=== PATIENT | female | born 1985 | race Two or more races ===

== ENCOUNTER → 2016-09-04 | Outpatient (CLI) | payer OTHER ==
[2015-04-06 00:49] VITALS: BP 186/97
--- NOTE | 2016-09-04 10:54 | RAD ---
HISTORY: Left foot pain history of trauma 1 month ago Study: Left foot three view Comparison: None Findings: No acute cortical disruption or dislocation can be identified. No significant soft tissue swelling or injury can be seen. The visualized portions of the talus and calcaneus are unremarkable. The saad nts are normal. IMPRESSION: 1. Negative exam. Reported By:
== END ==
LOC: RAD 09:44
PROVIDERS: ATTEND Obstetrics & Gynecology Obstetrics
DX: M25.572 Pain in left ankle and joints of left foot (principal)
CPT/HCPCS: 73630

== ENCOUNTER 2017-01-29 16:45 | Observation (INO) | payer OTHER ==
--- NOTE | 2017-01-29 17:31 | DR.GENAD ---
HPI - PCP Primary Care Physician: JARRELL - HPI Comment HPI Comment: PAIN GETTING WORSE AND IS ASSOCIATED WITH SOB. PAIN NON RADIATING. SHE DID NOT TAKE ANY MEDICATION FOR PAIN BEFORE COMING. WAS GOING TO [facility] BUT TURN AROUND AND CAME TO ED. DENIES CALF PAIN. - Complaint/Symptoms Chief Complaint Doctors Comments: RIGHT SIDED CHEST PAIN, SOB NOTED TODAY. Chief Complaint:: HURTING IN RIGHT SIDE OF UPPER CHEST WHEN I TAKE A DEEP BREATH. - Nurses notes reviewed Nurses Notes Review: Yes - Source History Provided: Patient - Mode of Arrival Mode of Arrival: Ambulatory - Timing Onset of Chief Complaint: 01/29/17 Came on: Suddenly - Duration Duration: Constant Duration: Hours - Severity Severity: Moderate PMH - PMH Past Medical History: No Past Surgical History: No Surgical History: - Family History History of Family Medical Conditions: Yes Family Medical History: Diabetes Mellitus, Hypertension - Social History Does any household member use tobacco: No Alcohol Use: None Do you use any recreational Drugs:: No Lives With: Family Lives Where: Home - infectious screening In the last 2 months have you had wt loss of >10#?: NO Have you had fever, night sweats or hemotysis?: No Have you traveled outside the country in the last 6 months?: No Isolation: Standard ROS - Review of Systems Constitutional: Weakness, Fatigue. negative: Chills, Fever Eyes: No Symptoms Reported. negative: Eye Pain, Discharge ENTM: No Symptoms Reported. negative: Ear Pain, Nose Discharge, Nose Congestion , Throat Pain Respiratoy: Short of Breath. negative: Non-Productive Cough, Wheezing, Hemoptysis Cardiovascular: Chest Pain. negative: Edema, Palpitations Gastrointestinal/Abdominal: No Symptoms Reported. negative: Abdominal Pain, Nausea, Vomiting Genitourinary: No Symptoms Reported. negative: Dysuria, Frequency, Hematuria Neurological: No Symptoms Reported, Weakness. negative: Headache, Dizziness Musculoskeletal: Muscle Pain Integumentary: No Symptoms Reported Hematologic/Lymphatic: No Symptoms Reported Endocrine: No Symptoms Reported All Other Systems: Reviewed and Negative PE - Vital Signs Vitals: Temperature 98.7 F Pulse Rate 81 Respiratory Rate 16 Blood Pressure [Left Arm] 165/86 Blood Pressure 158/99 O2 Sat by Pulse Oximetry 98 - General Limitations: No Limitations General Appearance: Alert - Head Head Exam: Normal Inspection - Eyes Eye exam: Normal Appearance - ENT ENT Exam: Normal External Ear Exam External Ear Exam: Normal External Inspection TM/Canal Exam: Bilateral Normal Nose Exam: Normal Nose Exam Mouth Exam: Normal Inspection Throat Exam: Normal Inspection - Neck Neck Exam: Normal Inspection - Chest Chest Inspection: Symmetric Chest Wall Rise - Respiratory Respiratory Exam: Normal Lung Sounds Bilat Respiratory Exam: Bilateral Clear to Auscultation - Cardiovascular Cardiovascular Exam: Regular Rate, Normal Rhythm, Normal Heart Sounds - Abdominal Exam Abdominal Exam: Normal Bowel Sounds, Soft. negative: Tenderness - Extremities Extremities Exam: Normal Inspection - Back Back Exam: Normal Inspection - Neurologic Neurological Exam: Alert, Oriented X3 - Psychiatric Psychiatric Exam: Anxious - Skin Skin Exam: Normal Color MDM - Differential Diagnosis Differential Diagnosis: CHEST PAIN, RESPIRATORY DISTRESS Course - Treatment Treatment: SEE ORDERS. - Consultation Consultation Comments: DISCUSS PATIENT WITH DR. GIMENEZ. HE WILL ADMIT PATIENT. - Education/Counseling Education/Counseling: Patient, Education Educated On: Diagnosis ROR - Labs Reviewed Laboratory Results Reviewed?: Yes Result Diagrams: 01/29/17 18:04 01/29/17 18:04 Laboratory: WBC 7.6 X10^3/uL (3.6-10.0) 01/29/17 18:04 RBC 4.41 X10^6/uL (3.5-5.4) 01/29/17 18:04 Hgb 11.7 g/dL (12.0-16.0) L 01/29/17 18:04 Hct 35.7 % (36.0-47.0) L 01/29/17 18:04 MCV 81.1 fL (80.0-100.0) 01/29/17 18:04 MCH 26.7 pg (27.0-34.0) L 01/29/17 18:04 MCHC 32.9 g/dL (33.0-35.0) L 01/29/17 18:04 RDW 15.6 % (11.6-16.5) 01/29/17 18:04 Plt Count 244 X10^3/uL (150.0-450.0) 01/29/17 18:04 MPV 8.1 fL (7.4-11.0) 01/29/17 18:04 Neut % 65.8 % (42.0-75.0) 01/29/17 18:04 Lymph % 25.5 % (21.0-51.0) 01/29/17 18:04 Davison % 5.9 % (0.0-13.0) 01/29/17 18:04 Eos % 2.5 % (0.9-2.9) 01/29/17 18:04 Baso % 0.3 % (0.2-1.0) 01/29/17 18:04 Neut # 5.0 x10^3/uL (2.2-4.8) H 01/29/17 18:04 Lymph # 1.9 X10^3/uL (1.3-2.9) 01/29/17 18:04 Davison # 0.4 x10^3/uL (0.3-0.8) 01/29/17 18:04 Eos # 0.2 x10^3/uL (0.0-0.2) 01/29/17 18:04 Baso # 0.0 X10^3/uL (0.0-0.1) 01/29/17 18:04 Absolute Nucleated RBC 0.0 /100WBC 01/29/17 18:04 D-Dimer 510 ng/mL (0-400) H* 01/29/17 18:04 Sodium 143 mmol/L (136-145) 01/29/17 18:04 Corrected Sodium TNP 01/29/17 18:04 Potassium 3.8 mmol/L (3.5-5.1) 01/29/17 18:04 Chloride 106 mmol/L (98-107) 01/29/17 18:04 Carbon Dioxide 30.6 mmol/L (21-32) 01/29/17 18:04 BUN 9 mg/dL (7-18) 01/29/17 18:04 Creatinine 0.61 mg/dL (0.55-1.02) 01/29/17 18:04 Est GFR (MDRD) Af Amer > 60 (>60) 01/29/17 18:04 Est GFR (MDRD) Non-Af > 60 (>60) 01/29/17 18:04 Glucose 89 mg/dL (65-99) 01/29/17 18:04 Calcium 8.2 mg/dL (8.5-10.1) L 01/29/17 18:04 Corrected Calcium TNP 01/29/17 18:04 Total Bilirubin 0.20 mg/dL (0.2-1.0) 01/29/17 18:04 AST 15 Units/L (15-37) 01/29/17 18:04 ALT 27 Units/L (12-78) 01/29/17 18:04 Alkaline Phosphatase 80 Units/L (46-116) 01/29/17 18:04 Creatine Kinase 146 Units/L (26-192) 01/29/17 18:04 CK-MB (CK-2) < 1.0 ng/mL (0-4.0) 01/29/17 18:04 CK/CKMB % Calc 0.7 % (<4) 01/29/17 18:04 Troponin I < 0.02 ng/mL (0-1.5) 01/29/17 18:04 Total Protein 7.4 g/dL (6.4-8.2) 01/29/17 18:04 Albumin 3.4 g/dL (3.4-5.0) 01/29/17 18:04 Globulin 4.0 g/dL (2.5-4.5) 01/29/17 18:04 Albumin/Globulin Ratio 0.9 Ratio (1.1-2.1) L 01/29/17 18:04 Specimen Type Clean catch urine 01/29/17 19:05 Urine Color Yellow (YELLOW) 01/29/17 19:05 Urine Appearance Clear (CLEAR) 01/29/17 19:05 Urine pH 6.5 (5.0 - 8.0) 01/29/17 19:05 Ur Specific Kohler 1.015 (1.000-1.030) 01/29/17 19:05 Urine Protein Negative (NEGATIVE) 01/29/17 19:05 Urine Glucose (UA) Negative (NEGATIVE) 01/29/17 19:05 Urine Ketones Negative (NEGATIVE) 01/29/17 19:05 Urine Occult Blood Negative (NEGATIVE) 01/29/17 19:05 Urine Nitrite Negative (NEGATIVE) 01/29/17 19:05 Urine Bilirubin Negative (NEGATIVE) 01/29/17 19:05 Urine Urobilinogen Normal (NORMAL) 01/29/17 19:05 Ur Leukocyte Esterase Negative (NEGATIVE) 01/29/17 19:05 Urine RBC None seen /HPF (NEGATIVE) 01/29/17 19:05 Urine WBC 0-2 /HPF (NEGATIVE) 01/29/17 19:05 Ur Squamous Epith Cells Few /HPF (NEGATIVE) 01/29/17 19:05 Urine Bacteria Trace /HPF (NEGATIVE) 01/29/17 19:05 Ur Culture Indicated? No/not indicated 01/29/17 19:05 - XRAY XRAY Interpreted by: Radiologist XRAY Findings: REPORT DISCUSS WITH PATIENT. - EKG Rhythm: NSR (EKG NOTED.) - Diagnosis Discharge Problem: Chest pain, Respiratory distress - Discharge Plan Disposition: ADMITTED INPATIENT Condition: Stable - Follow ups/Referrals - Instructions
[2017-01-29 18:12] LABS: BASOPHILS % (AUTO) 0.3 % (0.2-1.0); EOSINOPHILS # (AUTO) 0.2 x10^3/uL (0.0-0.2); EOSINOPHILS % (AUTO) 2.5 % (0.9-2.9); HEMATOCRIT 35.7 % (36.0-47.0); HEMOGLOBIN 11.7 g/dL (12.0-16.0); LYMPHOCYTES # (AUTO) 1.9 X10^3/uL (1.3-2.9); LYMPHOCYTES % (AUTO) 25.5 % (21.0-51.0); MEAN CORPUSCULAR HEMOGLOBIN 26.7 pg (27.0-34.0); MEAN CORPUSCULAR HGB CONC 32.9 g/dL (33.0-35.0); MEAN CORPUSCULAR VOLUME 81.1 fL (80.0-100.0); MEAN PLATELET VOLUME 8.1 fL (7.4-11.0); MONOCYTES # (AUTO) 0.4 x10^3/uL (0.3-0.8); MONOCYTES % (AUTO) 5.9 % (0.0-13.0); NEUTROPHILS % (AUTO) 65.8 % (42.0-75.0); PLATELET COUNT 244 X10^3/uL (150.0-450.0); RED BLOOD COUNT 4.41 X10^6/uL (3.5-5.4); RED CELL DISTRIBUTION WIDTH 15.6 % (11.6-16.5); WHITE BLOOD COUNT 7.6 X10^3/uL (3.6-10.0)
[2017-01-29 18:46] LABS: ALANINE AMINOTRANSFERASE 27 Units/L (12-78); ALBUMIN 3.4 g/dL (3.4-5.0); ALKALINE PHOSPHATASE 80 Units/L (46-116); ASPARTATE AMINO TRANSFERASE 15 Units/L (15-37); BLOOD UREA NITROGEN 9 mg/dL (7-18); CALCIUM 8.2 mg/dL (8.5-10.1); CARBON DIOXIDE 30.6 mmol/L (21-32); CHLORIDE 106 mmol/L (98-107); CKMB % 0.7 % (<4); CREATINE KINASE 146 Units/L (26-192); CREATINE KINASE MB < 1.0 ng/mL (0-4.0); CREATININE 0.61 mg/dL (0.55-1.02); GLUCOSE 89 mg/dL (65-99); SODIUM 143 mmol/L (136-145); TOTAL PROTEIN 7.4 g/dL (6.4-8.2); TROPONIN I < 0.02 ng/mL (0-1.5); eGFR BLACK RACES > 60 (>60); eGFR NON BLACK RACES > 60 (>60)
[2017-01-29 18:51] LABS: D DIMER 510 ng/mL (0-400)
[2017-01-29 19:09] LABS: BILIRUBIN,URINE NEGATIVE (NEGATIVE); BLOOD/HEMOGLOBIN,URINE NEGATIVE (NEGATIVE); GLUCOSE, URINE NEGATIVE (NEGATIVE); KETONES,URINE NEGATIVE (NEGATIVE); LEUKOCYTE ESTERASE ,URINE NEGATIVE (NEGATIVE); NITRITES,URINE NEGATIVE (NEGATIVE); PH,URINE 6.5 (5.0 - 8.0); PROTEIN,URINE NEGATIVE (NEGATIVE); UROBILINOGEN,URINE NORMAL (NORMAL)
[2017-01-29 19:14] LABS: APPEARANCE,URINE CLEAR (CLEAR); BACTERIA,URINE TRACE /HPF (NEGATIVE); COLOR,URINE YELLOW (YELLOW); RBC,URINE NONE SEEN /HPF (NEGATIVE); SQUAMOUS EPITHELIAL CELL,UR FEW /HPF (NEGATIVE)
--- NOTE | 2017-01-29 21:24 | RAD ---
Chest AP portable Indication: Dyspnea. Comparison: December 25, 2013 radiograph Findings: There is no pneumothorax, effusion or consolidation. Heart size is normal for technique. Impression: No acute chest process. Reported By:
[2017-01-29 23:41] VITALS: BMI 49.6
[2017-01-30 00:36] LABS: CKMB % 0.8 % (<4); CREATINE KINASE 130 Units/L (26-192); CREATINE KINASE MB < 1.0 ng/mL (0-4.0); TROPONIN I < 0.02 ng/mL (0-1.5)
[2017-01-30 06:06] LABS: BASOPHILS % (AUTO) 0.3 % (0.2-1.0); EOSINOPHILS # (AUTO) 0.3 x10^3/uL (0.0-0.2); EOSINOPHILS % (AUTO) 4.2 % (0.9-2.9); HEMATOCRIT 33.1 % (36.0-47.0); HEMOGLOBIN 11.1 g/dL (12.0-16.0); LYMPHOCYTES # (AUTO) 2.7 X10^3/uL (1.3-2.9); LYMPHOCYTES % (AUTO) 37.4 % (21.0-51.0); MEAN CORPUSCULAR HGB CONC 33.5 g/dL (33.0-35.0); MEAN CORPUSCULAR VOLUME 80.6 fL (80.0-100.0); MEAN PLATELET VOLUME 8.5 fL (7.4-11.0); MONOCYTES # (AUTO) 0.4 x10^3/uL (0.3-0.8); MONOCYTES % (AUTO) 6.2 % (0.0-13.0); NEUTROPHILS # (AUTO) 3.7 x10^3/uL (2.2-4.8); NEUTROPHILS % (AUTO) 51.9 % (42.0-75.0); PLATELET COUNT 222 X10^3/uL (150.0-450.0); RED BLOOD COUNT 4.11 X10^6/uL (3.5-5.4); RED CELL DISTRIBUTION WIDTH 15.3 % (11.6-16.5); WHITE BLOOD COUNT 7.1 X10^3/uL (3.6-10.0)
[2017-01-30 06:08] LABS: ALANINE AMINOTRANSFERASE 24 Units/L (12-78); ALBUMIN 2.9 g/dL (3.4-5.0); ALKALINE PHOSPHATASE 67 Units/L (46-116); ASPARTATE AMINO TRANSFERASE 13 Units/L (15-37); BLOOD UREA NITROGEN 9 mg/dL (7-18); CALCIUM 7.7 mg/dL (8.5-10.1); CARBON DIOXIDE 27.8 mmol/L (21-32); CHLORIDE 107 mmol/L (98-107); COR CA(FOR HYPOALB) 8.6 mg/dL (8.5-10.1); COR NA(FOR HYPERGLY) 142 mmol/L (136-145); CREATININE 0.73 mg/dL (0.55-1.02); GLUCOSE 111 mg/dL (65-99); SODIUM 142 mmol/L (136-145); TOTAL PROTEIN 6.4 g/dL (6.4-8.2); eGFR BLACK RACES > 60 (>60); eGFR NON BLACK RACES > 60 (>60)
[2017-01-30 06:27] LABS: CKMB % 0.8 % (<4); CREATINE KINASE 121 Units/L (26-192); CREATINE KINASE MB < 1.0 ng/mL (0-4.0); TROPONIN I < 0.02 ng/mL (0-1.5)
--- NOTE | 2017-01-30 12:56 | VAS ---
HISTORY: Bilateral lower extremity edema. Study: Bilateral lower extremity duplex venous ultrasound. Comparison: None. TECHNIQUE: Multiple shields scale and color flow Doppler images of the deep venous system were obtaine d of the right and left lower extremity. FINDINGS: The deep venous system of the right and left lower extremities were evaluated from the level of the common femoral vein through the popliteal vein. Normal color flow and augmentation can be observed. In addition, normal compression is seen throughout the deep venous system. IMPRESSION: Negative for bilateral lower extremity DVT. Reported By:
[2017-01-30] MEDS ORDERED: NS 100 ML IV 100 ML IV ONE (13:38)
--- NOTE | 2017-01-30 14:18 | CT ---
HISTORY: Chest pain, elevated D-dimer Study: CTA chest with contrast for pulmonary emboli Comparison: None Technique: Axial post-contrast images with coronal, sagittal, and 3 dimensional maximum intensity pr ojection images obtained in evaluated. Dose reduction procedures were used with MA/kv adjusted for b lida size. Findings: There is no evidence for acute pulmonary thromboembolic disease in the main pulmonary artery, right and left main pulmonary arteries, an lobar branches. Evaluation more distally is not possible due to suboptimal bolus timing. Examination of the mediastinum demonstrated no evidence for mediastinal ma sses, lymphadenopathy, or hilar lymphadenopathy. No pleural effusions are identified. No chest wall or axillary abnormality is identified. Those portions of the upper abdominal organs visualized were within normal limits. Examination of the lung de luna demonstrated no significant nodules, alveolar i nfiltrates, masses, peribronchial thickening, bronchiectasis or areas of consolidation. IMPRESSION: No evidence for acute pulmonary thromboembolic disease in the main pulmonary artery, right and left main pulmonary artery, lobar arteries. Evaluation more distally is not possible due to suboptimal dillon all timing Lungs clear Reported By:
[2017-01-30 17:18] VITALS: BP 132/82
== END 2017-01-30 18:50 | disposition home or self-care (01) ==
LOC: ER 16:55 → ICU 21:37 → MED/SURG 01-30 10:50
PROVIDERS: ADMIT Internal Medicine; ATTEND Obstetrics & Gynecology Obstetrics
DX: R07.89 Other chest pain (principal); R06.02 Shortness of breath; R06.00 Dyspnea, unspecified; D64.89 Other specified anemias; R94.31 Abnormal electrocardiogram [ECG] [EKG]; R79.1 Abnormal coagulation profile; R09.1 Pleurisy; R10.13 Epigastric pain
CPT/HCPCS: 36415; 71010; 71275; 80053; 81001; 82550; 82553; 84484; 85025; 85378; 93005; 93010; 93970; 96365; 99284; A4216; A4222; G0378